=== PATIENT | male | born 1940 | race Caucasian/White ===

== ENCOUNTER 2017-11-25 18:56 | Observation (INO) | payer OTHER ==
[2017-11-25] MEDS ORDERED: AMLODIPINE 5 MG TAB PO ONE (20:23)
[2017-11-25] MEDS ORDERED: ASPIRIN EC 81 MG TAB PO ONE (20:23)
[2017-11-25 20:47] LABS: Absolute Lymphocytes (CBC) 1.4 K/uL (0.7-4.9); Absolute Monocytes 0.7 K/uL (0.1-1.3); Basophils % 0.9 % (0-1.3); Eosinophils % 5.9 % (0-4.4); Hematocrit 44.3 % (39.6-49.0); Lymphocytes % 18.2 % (15.3-44.8); MCH 32.6 pg (27.0-35.0); MCV 95.2 fL (80-100); Monocytes % 9.1 % (3.3-12.3); RBC Red Blood Cell Count 4.66 M/uL (4.33-5.43)
[2017-11-25 21:10] LABS: Albumin 4.2 g/dL (3.4-5.0); Bilirubin Total 0.8 mg/dL (0.2-1.0); CKMB Creatine Kinase MB 4.6 ng/mL (0.3-3.6); Magnesium 2.3 mg/dL (1.8-2.4); Protein, Total 7.6 g/dL (6.4-8.2); Thyroid Stimulating Hormone 1.88 uIU/mL (0.36-3.74)
--- NOTE | 2017-11-25 21:14 | RAD REPORT ---
EXAM DESCRIPTION: Dae Mercer And Carmelo (2 Views)11/25/2017 9:02 pm CLINICAL HISTORY: Cough COMPARISON: None FINDINGS: The lungs appear clear of acute infiltrate. The heart is normal size. A moderate hiatal hernia is seen IMPRESSION: No acute abnormalities displayed
--- NOTE | 2017-11-26 05:40 | HP ---
Date of Admission: 11/25/2017 Chief Complaint: Pain. History Of Present Illness: This is a 77-year-old male patient, who came into office today and repor raymond that 2 months ago he had some numbness in his left arm, that lasted for about half a day or so, a nd he felt like his left hand was cold at that time. He has not had recurrence of similar symptom bu t since that time, he has been having some problem where he describes he has a history of left should er pain off and on for a long-long time, which he has talked about many years with certain activity b ut lately he is having some different type of complaints where he feels like his left arm is weaker t arguello normal from time to time. Today, he worked in the yard, he felt like left arm was feeling tired or weaker than usual after this yard work and he has been feeling some weakness of left upper extremi ty in last few days. Denies any pain in the center of the chest, but has some pain in the left anter ior shoulder region. After the patient was evaluated at the office, [facility] and management of this problem. Denies any fall or injury. No neck pain. Allergies: NO KNOWN ALLERGIES. Medications: Per list at office, he takes amlodipine 5 mg daily, metoprolol 25 mg p.o. at bedtime, a spirin 81 mg daily, Symbicort inhaler 2 puffs 2 times a day. Review of Systems: Cardiovascular: As mentioned above. Musculoskeletal: As mentioned above. Neurology: As mentioned above. All other systems reviewed and negative. Past Medical History: Significant for hypertension, hyperlipidemia, allergic rhinitis, gout, impaire d fasting glucose, diverticulosis. Family History: Significant for heart disease, COPD, diabetes, breast cancer, coronary artery diseas e, brain cancer. Past Surgical History: Hernia repair. Social History: Negative for smoking, alcohol use. Physical Examination: Vital Signs: At office, his height was 67 inches, weight 183 pounds, blood pressure was 160/86, puls e 60, respiratory rate 15, temperature 97.6. General: Awake, alert, oriented, not in distress. HEENT: Head atraumatic, normocephalic. Conjunctivae nonerythematous. Sclerae white. Mouth, no thr ush or edema noted. Ears/Nose, no mass, lesion, discharge noted. Neck: Supple. No JVD, lymph nodes, bruit, thyromegaly noted. Lungs: Bilateral good equal air entry. Clear to auscultation. No rhonchi. No rales. Heart: Normal heart sounds, no murmur or gallop. Abdomen: Soft, bowel sounds normal. No guarding, rigidity, tenderness, mass, hepatosplenomegaly, dis tention, or bruit noted. Extremities: No leg edema. No calf tenderness. Skin: No rash, ulcer, cellulitis. Lymphatics: No lymph node enlargement in neck, supraclavicular, infraclavicular region. Neuro: No focal neurological deficit. Chest: Unremarkable. External Genitalia: Deferred. Rectal: Deferred. Laboratory Data: White count 7.6, hemoglobin 15.2, platelets 232. Sodium 139, potassium 4, chloride 104, bicarb 26, BUN 23, creatinine 1.20, glucose 101. Liver function tests unremarkable. TSH 1.88. Chest x-ray, no acute cardiopulmonary changes. Impression: 1.Atypical chest pain. 2.Cervical spondylosis with radiculopathy. 3.Hypertension. 4.Benign prostatic hypertrophy. 5.Hyperlipidemia. 6.Impaired fasting glucose. 7.Diverticulosis. Plan: Admit the patient to hospital for further evaluation and management of this problem. The shruthi ent is appropriate for observation. We will go ahead and admit him to telemetry. Amlodipine and asp irin dose will be given tonight per order. I will see him tomorrow for followup. We will go ahead a nd get Lexiscan stress test tomorrow and tomorrow we will also place order for MRI of the cervical sp ine. Details and plan of treatment discussed with the patient. Home medications will be continued p er order. I will see him tomorrow for followup and possible discharge to go home tomorrow depending on the test results. KATHLEEN/MANNY Voice ID: [id number]
[2017-11-26] MEDS ORDERED: REGADENOSON 0.4 MG/5 ML SYR IV ONE (08:23)
[2017-11-26] MEDS ORDERED: DOXYLAMINE PO SCH (09:00)
[2017-11-26] MEDS ORDERED: ASPIRIN EC 81 MG TAB PO SCH (09:00)
[2017-11-26] MEDS ORDERED: HOME MED 1 EA UNK (Metoprolol Tartrate [Metoprolol Tartrate] 25 MG) PO SCH (09:00)
[2017-11-26] MEDS ORDERED: AMLODIPINE BESYLATE 5 MG PO SCH (09:00)
[2017-11-26] MEDS ORDERED: PHENYLEPHRINE HCL PO SCH (09:00)
--- NOTE | 2017-11-26 10:25 | TREADPHA ---
DX: CHEST PAIN Date of Study: 11/26/2017 Ht: 5 7 Wt: 183 lb 14.4 oz Consulting Physician: NANCY MEDICATIONS: ASPIRIN HISTORY: 77 YEAR OLD MALE WITH COMPLAINTS OF CHEST PAIN. MEDICAL HISTORY OF HYPERLIPIDEMIA AND HYPERTENSION. PHYSICIAL EXAMINATION: RESTING B.P.: 171/82 RESTING H.R.: 49 RESTING EKG: SINUS BRADYCARDIA PROTOCOL: LEXISCAN EXERCISE TIME: 3:30 B.P. AT PEAK STRESS: 148/75 IMPRESSION: LEXISCAN INJECTED. CARDIOLITE INJECTED PER PROTOCOL. SEE NUCLEAR MEDICINE REPORT. NO SUPRAVENTRICULAR OR VENTRICULAR TACHYCARDIA NOTED. NO PREMATURE VENTRICULAR COMPLEXES. DENIED CHEST PAIN.
--- NOTE | 2017-11-26 12:13 | RAD REPORT ---
EXAM DESCRIPTION: NM - Rest Stress Cardiac Imaging - 11/26/2017 11:58 am CLINICAL HISTORY: CP Chest pain. COMPARISON: Chest Pa And Lat (2 Views) dated 11/25/2017 TECHNIQUE: The patient was administered approximately 10mCi of Tc 99m Sestamibi prior to resting SPE CT imaging of the heart. The patient was then administered approximately 30 mCi of Tc 99m Sestamibi f ollowing exercise or pharmacologic stress. Multiplanar SPECT images were reviewed. FINDINGS: No stress induced ischemic defect is seen to suggest stress induced ischemia. No fixed def ect is seen to suggest hibernating myocardium or scarred myocardium. The end diastolic volume is 80 ml, the end systolic volume is 27 ml, and the ejection fraction is 66 %. IMPRESSION: No stress induced ischemia.
--- NOTE | 2017-11-26 12:26 | RAD REPORT ---
EXAM DESCRIPTION: MRI - C Spine Wo Cont- 11/26/2017 11:55 am CLINICAL HISTORY: cervical radiculopathy COMPARISON: No comparisons FINDINGS: Cervical vertebral bodies are normal in height and alignment. No suspicious marrow edema or marrow replacing process. No fracture or traumatic subluxation. The craniocervical junction is normal. C2-3 level: No significant abnormality. C3-4 level: Moderate disc/ osteophyte complex is noted attenuating the anterior subarachnoid space an d contacting the anterior aspect of the cord. Mild uncovertebral and facet spurring mildly narrowing both exit foramina. C4-5 level: Moderate disc/osteophyte complex is present attenuating the anterior subarachnoid space a nd contacting and deforming the anterior cord. Mild left-sided uncovertebral facet spurring mildly na rrowing the left exit foramen. C5-6 level: Moderate central disc protrusion measuring 4-5 mm is noted, attenuating the anterior suba rachnoid space and contacting and deforming the cord. Mild central canal stenosis is present. Facet a nd uncovertebral spurring is present bilaterally narrowing the exit foramina. C6-7 level: Small posterior disc bulge is seen with bilateral facet and uncovertebral spurring. Mild attenuation of the ventral subarachnoid space is seen. Moderate exit foraminal narrowing bilaterally. C7-T1 level: No significant findings. Cervical cord is normal in size and signal. IMPRESSION: Moderately severe midcervical degenerative change as detailed. Severe canal or foraminal stenosis is not identified at any level.
--- NOTE | 2017-11-27 04:34 | DS ---
Date of Discharge: 11/26/2017 Disposition: Discharged to go home. Physical Examination: HEENT: Unremarkable. Lungs: Clear to auscultation. Heart: Sounds normal. Abdomen: Soft. Bowel sounds normal. No guarding, rigidity, tenderness, or distention. Extremities: No leg edema. Hospital Course: This is a 77-year-old male patient, admitted to the hospital with complaints of bryan n. Please see dictated H and P for more information. After patient was evaluated at office, he was admitted to the hospital. His MT was ruled out by getting serial cardiac enzymes. His blood pressur e was elevated and he was given extra dose of amlodipine yesterday evening. This morning, when I saw him, he had no new complaints. Laboratory Data: Labs and testing done during this hospitalization: Stress test was negative for st ress-induced ischemia. MRI of cervical spine shows moderate degenerative joint disease. No evidence of any significant spinal stenosis. Final Diagnoses: 1.Atypical chest pain. 2.Cervical spondylosis with radiculopathy. 3.Hypertension. 4.Benign prostatic hypertrophy. 5.Hyperlipidemia. 6.Impaired fasting glucose. 7.Diverticulosis. Discharge Medications And Instructions: 1.Continue all prior home medications except change amlodipine 5 mg. patient to take 1 tablet 2 tyson es a day. 2.Follow up at my office in 2 weeks. 3.On an outpatient basis, we will decide to refer him to see orthopedic surgeon for left shoulder pr oblem that he has been having for a long time. Depending on his symptoms at the time of followup vis it, we will decide if we need to consider any medications like gabapentin or not for his cervical spi ne problem. KATHLEEN/MODL Voice ID: [id number] Report ID: [id number]
== END 2017-11-26 14:27 | disposition home or self-care (01) ==
LOC: 4TH 19:52
PROVIDERS: ADMIT Internal Medicine; ATTEND Internal Medicine
DX: R07.89 Other chest pain (principal); M47.892 Other spondylosis, cervical region; I10 Essential (primary) hypertension; N40.0 Benign prostatic hyperplasia without lower urinary tract symptoms; E78.5 Hyperlipidemia, unspecified; R73.01 Impaired fasting glucose; K57.90 Diverticulosis of intestine, part unspecified, without perforation or abscess without bleeding
CPT/HCPCS: 36415; 71046; 72141; 78452; 80053; 82550; 82553; 83735; 84443; 84484; 85025; 93005; 93017; A9500; G0378 ×2; J2785

== ENCOUNTER 2017-12-05 20:02 | Emergency (ER) | payer OTHER ==
[2017-12-05 20:53] LABS: Absolute Lymphocytes (CBC) 2.1 K/uL (0.7-4.9); Absolute Monocytes 0.6 K/uL (0.1-1.3); Absolute Neutrophil 2.7 K/uL (1.8-8.0); Basophils % 1.1 % (0-1.3); Eosinophils % 10.9 % (0-4.4); Hematocrit 43.4 % (39.6-49.0); Lymphocytes % 34.7 % (15.3-44.8); MCH 31.8 pg (27.0-35.0); MCV 95.5 fL (80-100); Monocytes % 9.1 % (3.3-12.3); Protime INR 0.98; RBC Red Blood Cell Count 4.54 M/uL (4.33-5.43)
[2017-12-05 21:13] LABS: Albumin 3.9 g/dL (3.4-5.0); Bilirubin Direct 0.2 mg/dL (0-0.2); Bilirubin Total 0.6 mg/dL (0.2-1.0); CKMB Creatine Kinase MB 3.4 ng/mL (0.3-3.6); Magnesium 2.3 mg/dL (1.8-2.4); Protein, Total 7.2 g/dL (6.4-8.2)
[2017-12-05 22:12] LABS: Urine Blood NEGATIVE (NEG); Urine Glucose NEGATIVE (NEG); Urine Protein NEGATIVE (NEG); Urine Specific Gravity 1.015 (1.005-1.030)
[2017-12-05] MEDS ORDERED: NA CHLORIDE 0.9% 500 ML ONE (22:51)
--- NOTE | 2017-12-05 22:53 | RAD REPORT ---
EXAM DESCRIPTION: Dae Single View12/05/2017 8:49 pm CLINICAL HISTORY: Chest pain COMPARISON: November 23, 2017 FINDINGS: The lungs appear clear of acute infiltrate. The heart is normal size A moderate to large hiatal hernia is present IMPRESSION: No acute abnormalities displayed
--- NOTE | 2017-12-05 22:53 | RAD REPORT ---
EXAM DESCRIPTION: CT - Abdomen Pelvis W Contrast - 12/05/2017 9:34 pm CLINICAL HISTORY: Abdominal pain/generalized abdominal pain COMPARISON: none. TECHNIQUE: Computed axial tomography of the abdomen pelvis was obtained. 100 cc Isovue-300 was admin istered intravenously. Oral contrast was not requested which limits evaluation of bowel. All CT scans are performed using dose optimization technique as appropriate and may include automated exposure control or mA/KV adjustment according to patient size. FINDINGS: A moderate to large hiatal hernia is present The liver, spleen, pancreas, adrenal and kidneys appear unremarkable. Diverticula stem from the colon without evidence of diverticulitis. A small right inguinal hernia is present Spondylosis involves lumbar spine resulting in spinal stenosis IMPRESSION: Moderate to large hiatal hernia
--- NOTE | 2017-12-05 23:14 | ER ---
Nurse's Notes [facility] Name: Enmanuel Le Sr Age: 77 yrs Sex: Male : 1940 Arrival Date: 12/05/2017 Time: 20:03 Bed 17 Private MD: Roberto Resendiz C Diagnosis: Unspecified abdominal pain;Hiatal hernia Presentation: 12/05 20:11 Presenting complaint: Patient states: GENERALIZED ABDOMINAL PAIN AND DIAPHORESIS FOR 20 bp MIN. Transition of care: patient was not received from another setting of care. Onset of symptoms was December 05, 2017 at 20:00. Risk Assessment: Do you want to hurt yourself or someone else? Patient reports no desire to harm self or others. Initial Sepsis Screen: Does the patient meet any 2 criteria? No. Patient's initial sepsis screen is negative. Does the patient have a suspected source of infection? No. Patient's initial sepsis screen is negative. Care prior to arrival: None. 20:11 Method Of Arrival: Ambulatory bp 20:11 Acuity: MYRA 2 bp Triage Assessment: 20:13 General: Appears distressed, uncomfortable, Behavior is cooperative, appropriate for bp age, anxious. Pain: Complains of pain in abdomen. EENT: No deficits noted. Neuro: Level of Consciousness is awake, alert, obeys commands, Oriented to person, place, time, situation, Appropriate for age. Cardiovascular: Rhythm is sinus bradycardia Chest pain is described as "worst pain of my life", quality is clutching, is located in left. Respiratory: Airway is patent Respiratory effort is even, unlabored, Respiratory pattern is regular, symmetrical. GI: Reports lower abdominal pain, upper abdominal pain, nausea, Patient currently denies diarrhea, vomiting. : No signs and/or symptoms were reported regarding the genitourinary system. Derm: No deficits noted. Musculoskeletal: Circulation, motion, and sensation intact. Range of motion: intact in all extremities. Historical: - Allergies: 20:13 No Known Allergies; bp - Home Meds: 20:13 Metoprolol Tartrate Oral [Active]; amlodipine oral [Active]; bp - PMHx: 20:13 Hypertension; bp - Immunization history:: Adult Immunizations up to date. - Social history:: Smoking status: Patient/guardian denies using tobacco. - Ebola Screening: : Patient negative for fever greater than or equal to 101.5 degrees Fahrenheit, and additional compatible Ebola Virus Disease symptoms Patient denies exposure to infectious person Patient denies travel to an Ebola-affected area in the 21 days before illness onset No symptoms or risks identified at this time. Screenin:16 Abuse screen: Denies threats or abuse. Denies injuries from another. Nutritional bp screening: No deficits noted. Tuberculosis screening: No symptoms or risk factors identified. Fall Risk None identified. Assessment: 20:16 General: SEE TRIAGE NOTE. 77YO WM P/W SUDDEN ONSET GEN ABD PAIN WITH LEFT LOWER CP AND bp DIAPHORESIS, OCCURRING AT REST, NOW EASING S/S. 21:00 Reassessment: PT STATES RELIEF OF ACUTE S/S, CT PENDING. bp 21:00 GI: Bowel sounds present X 4 quads. Abd is soft X 4 quads. bp 21:27 Reassessment: PT TO CT WITH CORPORATE DEVELOPMENT ASSOCIATE. bp 21:47 Reassessment: PT RETURNED FROM CT, ALL CURRENT ORDERS COMPLETED, RESULTS PENDING. bp 23:29 Reassessment: PT D/C HOME AMBULATORY, DX WITH HIATAL HERNIA. bp Vital Signs: 20:13 BP 152 / 72; Pulse 57; Resp 20; Temp 98.3; Pulse Ox 94% ; Weight 81.65 kg; Height 5 ft. bp 7 in. (170.18 cm); 20:44 BP 150 / 72; Pulse 56; Resp 13; Pulse Ox 96% on R/A; bp 21:00 BP 155 / 77; Pulse 55; Resp 20; Pulse Ox 96% ; bp 21:56 BP 134 / 97; Pulse 55; Resp 16; Pulse Ox 100% on R/A; ks6 22:40 BP 149 / 72; Pulse 53; Resp 18; Pulse Ox 100% on R/A; tl2 23:28 BP 146 / 76; Pulse 54; Resp 14; Pulse Ox 96% ; bp 20:13 Body Mass Index 28.19 (81.65 kg, 170.18 cm) bp ED Course: 20:03 Patient arrived in ED. es 20:03 Roberto Resendiz MD is Private Physician. es 20:04 Larry Mathias, MARIA INES is Primary Nurse. bp 20:12 Triage completed. bp 20:13 Arm band placed on. bp 20:16 Patient has correct armband on for positive identification. Bed in low position. Call bp light in reach. Side rails up X2. Adult w/ patient. 20:17 Jairo Engel NP is PHCP. pm1 20:17 Bishop Alexis MD is Attending Physician. pm1 20:44 Inserted saline lock: 20 gauge in left antecubital area, using aseptic technique. Blood bp collected. 20:49 XRAY Chest (1 view) In Process Unspecified. EDMS 21:30 CT completed. Patient moved to CT via wheelchair. Patient moved back from CT. cw1 21:34 CT Abd/Pelvis - W/Contrast: IV contrast only In Process Unspecified. EDMS 23:11 Kamilla Marin MD is Referral Physician. pm1 23:29 No provider procedures requiring assistance completed. IV discontinued, intact, bp bleeding controlled, No redness/swelling at site. Pressure dressing applied. Administered Medications: 22:45 Drug: NS 0.9% 500 ml Route: IV; Rate: bolus; Site: right antecubital; bp Outcome: 23:13 Discharge ordered by MD. pm1 23:30 Discharged to home ambulatory, with family. bp 23:30 Condition: stable 23:30 Discharge instructions given to patient, family, Instructed on discharge instructions, follow up and referral plans. Demonstrated understanding of instructions, follow-up care. 23:31 Patient left the ED. bp Signatures: Dispatcher [employer] EDDC Cande Bocanegra Crystal cw1 Jairo Engel NP [employer] PRESS OPERATOR pm1 Carla Thompson RN RN tl2 Larry Mathias RN RN bp Gordy Shanks ks6
--- NOTE | 2017-12-05 23:14 | EDPHYS ---
Physician Documentation [facility] Name: Enmanuel Le Sr Age: 77 yrs Sex: Male : 1940 Arrival Date: 12/05/2017 Time: 20:03 Bed 17 Private MD: Roberto Resendiz C ED Physician Bishop Alexis HPI: 12/05 21:00 This 77 yrs old Male presents to ER via Ambulatory with complaints of pm1 Abdominal Pain, Nausea. 21:00 The patient presents with abdominal pain that is diffuse. Onset: The symptoms/episode pm1 began/occurred just prior to arrival. The symptoms do not radiate. Associated signs and symptoms: Pertinent positives: nausea, Pertinent negatives: chest pain, diarrhea, dysuria, fever, shortness of breath, vomiting. The symptoms are described as sharp. Modifying factors: The symptoms are alleviated by nothing, the symptoms are aggravated by nothing. Severity of pain: in the emergency department the pain has resolved is a 0 / 10. The patient has not experienced similar symptoms in the past. The patient has not recently seen a physician, the patient's primary care provider is Dr. Resendiz. Historical: - Allergies: 20:13 No Known Allergies; bp - Home Meds: 20:13 Metoprolol Tartrate Oral [Active]; amlodipine oral [Active]; bp - PMHx: 20:13 Hypertension; bp - Immunization history:: Adult Immunizations up to date. - Social history:: Smoking status: Patient/guardian denies using tobacco. - Ebola Screening: : Patient negative for fever greater than or equal to 101.5 degrees Fahrenheit, and additional compatible Ebola Virus Disease symptoms Patient denies exposure to infectious person Patient denies travel to an Ebola-affected area in the 21 days before illness onset No symptoms or risks identified at this time. ROS: 21:00 Constitutional: Negative for fever, chills, and weight loss, Eyes: Negative for injury, pm1 pain, redness, and discharge, ENT: Negative for injury, pain, and discharge, Neck: Negative for injury, pain, and swelling, Cardiovascular: Negative for chest pain, palpitations, and edema, Respiratory: Negative for shortness of breath, cough, wheezing, and pleuritic chest pain. 21:00 Back: Negative for injury and pain, : Negative for injury, bleeding, discharge, and swelling, MS/Extremity: Negative for injury and deformity. 21:00 Neuro: Negative for headache, weakness, numbness, tingling, and seizure. 21:00 Abdomen/GI: Positive for abdominal pain, Negative for nausea, vomiting, and diarrhea. 21:00 Skin: Positive for diaphoresis. Exam: 21:00 Constitutional: This is a well developed, well nourished patient who is awake, alert, pm1 and in no acute distress. Head/Face: Normocephalic, atraumatic. Eyes: Pupils equal round and reactive to light, extra-ocular motions intact. Lids and lashes normal. Conjunctiva and sclera are non-icteric and not injected. Cornea within normal limits. Periorbital areas with no swelling, redness, or edema. ENT: Nares patent. No nasal discharge, no septal abnormalities noted. Tympanic membranes are normal and external auditory canals are clear. Oropharynx with no redness, swelling, or masses, exudates, or evidence of obstruction, uvula midline. Mucous membranes moist. Neck: Trachea midline, no thyromegaly or masses palpated, and no cervical lymphadenopathy. Supple, full range of motion without nuchal rigidity, or vertebral point tenderness. No Meningismus. Chest/axilla: Normal chest wall appearance and motion. Nontender with no deformity. No lesions are appreciated. Cardiovascular: Regular rate and rhythm with a normal S1 and S2. No gallops, murmurs, or rubs. Normal PMI, no JVD. No pulse deficits. Respiratory: Lungs have equal breath sounds bilaterally, clear to auscultation and percussion. No rales, rhonchi or wheezes noted. No increased work of breathing, no retractions or nasal flaring. 21:00 Back: No spinal tenderness. No costovertebral tenderness. Full range of motion. Skin: Warm, dry with normal turgor. Normal color with no rashes, no lesions, and no evidence of cellulitis. MS/ Extremity: Pulses equal, no cyanosis. Neurovascular intact. Full, normal range of motion. 21:00 Abdomen/GI: Inspection: abdomen appears normal, Bowel sounds: normal, Palpation: soft, mild abdominal tenderness, in the suprapubic area, mass, is not appreciated, rebound tenderness, is not appreciated. 21:00 Neuro: Orientation: is normal, Motor: is normal, moves all fours. Vital Signs: 20:13 BP 152 / 72; Pulse 57; Resp 20; Temp 98.3; Pulse Ox 94% ; Weight 81.65 kg; Height 5 ft. bp 7 in. (170.18 cm); 20:44 BP 150 / 72; Pulse 56; Resp 13; Pulse Ox 96% on R/A; bp 21:00 BP 155 / 77; Pulse 55; Resp 20; Pulse Ox 96% ; bp 21:56 BP 134 / 97; Pulse 55; Resp 16; Pulse Ox 100% on R/A; ks6 22:40 BP 149 / 72; Pulse 53; Resp 18; Pulse Ox 100% on R/A; tl2 23:28 BP 146 / 76; Pulse 54; Resp 14; Pulse Ox 96% ; bp 20:13 Body Mass Index 28.19 (81.65 kg, 170.18 cm) bp MDM: 20:18 Patient medically screened. pm1 22:00 Physician consultation: Srinath Biggs MD was contacted at 21:55, Dictations are not pm1 processing through electronic records. No acute abnormalities. Patient with moderate hiatal hernia. 23:10 Data reviewed: vital signs. Data interpreted: Pulse oximetry: on room air is 100 %. pm1 Interpretation: normal. 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 23:10 ED course: Patient's without any chest pain or shortness of breath. Troponin negative. pm1 ECG NSR. Patient's stress test from 11/26/2017 reviewed: No stress induced ischemia. Labs wnls. CT positive for moderate to large hiatal hernia. Patient will be discharged to home to follow up with GI for further evaluation. . 12/05 20:18 Order name: Basic Metabolic Panel; Complete Time: 21:24 bp 12/05 20:18 Order name: CBC with Diff; Complete Time: 21:24 bp 12/05 20:18 Order name: Ckmb; Complete Time: 21:24 bp 12/05 20:18 Order name: CPK; Complete Time: 21:24 bp 12/05 20:18 Order name: LFT's; Complete Time: 21:24 bp 12/05 20:18 Order name: Magnesium; Complete Time: 21:24 bp 12/05 20:18 Order name: NT PRO-BNP; Complete Time: 21:24 bp 12/05 20:18 Order name: PT-INR; Complete Time: 21:24 bp 12/05 20:18 Order name: Ptt, Activated; Complete Time: 21:24 bp 12/05 20:18 Order name: Troponin (emerg Dept Use Only); Complete Time: 21:24 bp 12/05 20:18 Order name: XRAY Chest (1 view); Complete Time: 22:56 bp 12/05 20:18 Order name: Lipase; Complete Time: 21:24 bp 12/05 20:27 Order name: CT Abd/Pelvis - W/Contrast: IV contrast only; Complete Time: 22:56 pm1 12/05 21:55 Order name: Urine Dipstick--Ancillary (enter results); Complete Time: 22:17 rg2 12/05 20:18 Order name: EKG; Complete Time: 20:19 bp 12/05 20:18 Order name: Cardiac monitoring; Complete Time: 20:43 bp 12/05 20:18 Order name: EKG - Nurse/Tech; Complete Time: 20:43 bp 12/05 20:18 Order name: IV Saline Lock; Complete Time: 20:43 bp 12/05 20:18 Order name: Labs collected and sent; Complete Time: 20:43 bp 12/05 20:18 Order name: O2 Per Protocol; Complete Time: 20:43 bp 12/05 20:18 Order name: O2 Sat Monitoring; Complete Time: 20:43 bp 12/05 20:18 Order name: Urine Dipstick-Ancillary (obtain specimen); Complete Time: 21:54 bp Administered Medications: 22:45 Drug: NS 0.9% 500 ml Route: IV; Rate: bolus; Site: right antecubital; bp Disposition: 12/06 02:14 Co-signature as Attending Physician, Bishop Alexis MD. pkl Disposition: 12/05/17 23:13 Discharged to Home. Impression: Unspecified abdominal pain, Hiatal hernia. - Condition is Stable. - Discharge Instructions: Abdominal Pain, Adult, Hiatal Hernia. - Medication Reconciliation Form, Thank You Letter form. - Follow up: Emergency Department; When: As needed; Reason: Worsening of condition. Follow up: Kamilla Marin MD; When: 2 - 3 days; Reason: Recheck today's complaints, Continuance of care, Re-evaluation by your physician. - Problem is new. - Symptoms have improved. Signatures: Dispatcher [employer] EDMS Bishop Alexis MD MD pkl Jairo Engel, PROGRAM DIRECTOR/MUSIC DIRECTOR PROGRAM DIRECTOR/MUSIC DIRECTOR pm1 Larry Mathias, RN RN bp Corrections: (The following items were deleted from the chart) 12/05 23:31 23:13 12/05/2017 23:13 Discharged to Home. Impression: Unspecified abdominal pain; bp Hiatal hernia. Condition is Stable. Forms are Medication Reconciliation Form, Thank You Letter, Antibiotic Education, Prescription Opioid Use. Follow up: Emergency Department; When: As needed; Reason: Worsening of condition. Follow up: Kamilla Marin; When: 2 - 3 days; Reason: Recheck today's complaints, Continuance of care, Re-evaluation by your physician. Problem is new. Symptoms have improved. pm1
--- NOTE | 2017-12-07 07:44 | EKG ---
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
== END 2017-12-05 23:31 | disposition home or self-care (01) ==
LOC: ER 20:02
DX: K44.9 Diaphragmatic hernia without obstruction or gangrene (principal); I10 Essential (primary) hypertension
CPT/HCPCS: 36415; 71045; 74177; 80048; 80076; 81003; 82550; 82553; 83690; 83735; 83880; 84484; 85025; 85610; 85730; 93005; 99285; Q9967

== ENCOUNTER 2021-05-01 13:37 | Emergency (ER) | payer OTHER ==
--- OUTSIDE RECORDS SUMMARY | 2021-05-01 13:40 | XMS REPORT | Continuity of Care Document ---
:1940 Author Organization [facility] t Address [address] [place] [address] Care Team Providers Name Role Phone Pcp, Does Not Have A Primary Care Physician Therapy, [facility] Attending Clinician Unavailable Ebrahim REPAIRER GENERAL Attending Clinician EBRAHIM Attending Clinician Unavailable Doctor Unassigned, Name Attending Clinician Unavailable Marlen SPANN T Attending Clinician Unavailable UNKNOWN Attending Clinician Unavailable Payers Payer Name Policy Policy Number Effective Expiration Source Type Date Date MEDICAREMEDICARE [id number] 2003 Univers ity of PART A & 00:00:00 [facility] [id number] 2003 [phone] [id number] [phone] NEW ERA LIFENEW REHOBOTH [id number] 2018 Unive rsity of [id number]/[id number] 00:00:00 [facility] 19-PresentIndemnity Branc h Problems Condition Condition Condition Status Onset Resolution Last Treating Co mments Source Name Details Category Date Date Treatment Clinician Date No known No known Disease Unive rs active active ity of problems problems [facility] Allergies, Adverse Reactions, Alerts Allergy Allergy Status Severity Reaction(s) Onset Inactive Treating Comm ents Source Name Type Date Date Clinician NO KNOWN Drug Active Univers ALLERGIE Class ity of S [facility] Social History Social Habit Start Date Stop Date Quantity Comments Source Exposure to Yes University SARS-CoV-2 [facility] (event) Branch Tobacco use and 2021-01-05 2021-01-05 Never used Universit y of exposure 00:00:00 00:00:00 [facility] Alcohol intake 2021-01-05 2021-01-05 Lifetime University of 00:00:00 00:00:00 non-drinker [facility] (finding) [place] Sex Assigned At [birth year] [facility] y of 00:00:00 00:00:00 [facility] Smoking Status Start Date Stop Date Source Never smoker [facility] Branch Medications Ordered Filled Start Stop Current Ordering Indication Dosage Frequency Signature Comments Components Source Medication Medication Date Date Medication? Clinician (SIG) Name Name doxylamine- Yes 1{tbl} Take 1 [place] phenylephri 8-16 tablet by ity of ne 7.5-10 00:00: mouth 2 [place] mg Tab 00 (two) Medical times Branch daily. doxylamine- Yes 1{tbl} Take 1 [place] phenylephri 8-16 tablet by ity of ne 7.5-10 00:00: mouth 2 [place] mg Tab 00 (two) Medical times Branch daily. doxylamine- Yes 1{tbl} Take 1 [place] phenylephri 8-16 tablet by ity of ne 7.5-10 00:00: mouth 2 [place] mg Tab 00 (two) Medical times Branch daily. doxylamine- Yes 1{tbl} Take 1 [place] phenylephri 8-16 tablet by ity of ne 7.5-10 00:00: mouth 2 [place] mg Tab 00 (two) Medical times Branch daily. amLODIPine Yes TAKE ONE Uni vers 5 mg tablet 7-02 TABLET BY ity of 00:00: MOUTH [place] 00 TWICE A Medical DAY FOR Branch HEART/BLOO D PRESSURE atorvastati Yes TAKE Univer s n 20 mg 7-02 ONE-HALF ity of tablet 00:00: TABLET BY MOUTH AT Medical BEDTIME Branch FOR CHOLESTERO L budesonide- Yes INHALE 2 [place] formoteroL 7-02 PUFFS BY ity o f 80-4.5 00:00: MOUTH [place] mcg/actuati 00 TWICE A Medic al on inhaler DAY FOR Branch BREATHING RINSE YOUR MOUTH OUT AFTER EACH USE amLODIPine Yes TAKE ONE Uni vers 5 mg tablet 7-02 TABLET BY ity of 00:00: MOUTH TWICE A Medical DAY FOR Branch HEART/BLOO D PRESSURE atorvastati Yes TAKE Univer s n 20 mg 7-02 ONE-HALF ity of tablet 00:00: TABLET BY [place] MOUTH AT [facility] BEDTIME [place] FOR CHOLESTERO L budesonide- Yes INHALE 2 [place] formoteroL 7-02 PUFFS BY ity o f 80-4.5 00:00: MOUTH [place] mcg/actuati 00 TWICE A Medic al on inhaler DAY FOR Branch BREATHING RINSE YOUR MOUTH OUT AFTER EACH USE amLODIPine Yes TAKE ONE Uni vers 5 mg tablet 7-02 TABLET BY ity of 00:00: MOUTH TWICE A Medical DAY FOR Branch HEART/BLOO D PRESSURE atorvastati Yes TAKE Univer s n 20 mg 7-02 ONE-HALF ity of tablet 00:00: TABLET BY [place] MOUTH AT [facility] FOR CHOLESTERO L budesonide- Yes INHALE 2 [place] formoteroL 7-02 PUFFS BY ity o f 80-4.5 00:00: MOUTH [place] mcg/actuati 00 TWICE A Medic al on inhaler DAY FOR Branch BREATHING RINSE YOUR MOUTH OUT AFTER EACH USE amLODIPine Yes TAKE ONE Uni vers 5 mg tablet 7-02 TABLET BY ity of 00:00: MOUTH TWICE A Medical DAY FOR Branch HEART/BLOO D PRESSURE atorvastati Yes TAKE Univer s n 20 mg 7-02 ONE-HALF ity of tablet 00:00: TABLET BY [place] [facility]TH [facility] budesonide- Yes INHALE 2 [place] formoteroL 7-02 PUFFS BY ity o f 80-4.5 00:00: MOUTH [place] mcg/actuati 00 TWICE A Medic al on inhaler DAY FOR Branch BREATHING RINSE YOUR MOUTH OUT AFTER EACH USE losartan 50 2020- Yes TAKE ONE [place] mg tablet 6-07 TABLET BY ity o f 00:00: MOUTH 00 TWICE A Medical DAY FOR Branch BLOOD PRESSURE losartan 50 2020- Yes TAKE ONE [place] mg tablet 6-07 TABLET BY ity o f 00:00: MOUTH [place] 00 TWICE A Medical DAY FOR Branch BLOOD PRESSURE losartan 50 2020-0 Yes TAKE ONE [place] mg tablet 6-07 TABLET BY ity o f 00:00: MOUTH [place] 00 TWICE A Medical DAY FOR Branch BLOOD PRESSURE losartan 50 2020-0 Yes TAKE ONE [place] mg tablet 6-07 TABLET BY ity o f 00:00: MOUTH [place] 00 TWICE A Medical DAY FOR Branch BLOOD PRESSURE Vital Signs Vital Name Observation Time Observation Value Comments Source Systolic blood 2021-01-10 23:50:00 136 mm[Hg] Univer sity of [facility] Diastolic blood 2021-01-10 23:50:00 77 mm[Hg] Unive rsity [facility] [place] [facility] Heart rate 2021-01-10 23:50:00 67 /min [facility] Body temperature 2021-01-10 23:50:00 37.11 Megan [facility] Respiratory rate 2021-01-10 23:50:00 20 /min [facility] Oxygen saturation in 2021-01-10 23:50:00 97 /min [facility] blood by [facility] Pulse oximetry [place] Body height 2021-01-10 22:45:[address] [facility] Body weight 2021-01-10 22:45:[address] [facility] BMI 2021-01-10 22:45:00 28.98 kg/m2 [facility] Procedures Procedure Date / Time Performed Performing Clinician [facility] ASSIGNMENT OF BENEFITS 2021-01-10 22:14:19 Doctor Unassigned, No [facility] Encounters Start End Encounter Admission Attending Care Care Encounter Source Date/Time Date/Time Type Type Clinicians Facility Department ID 2021-01-10 2021-01-10 Nurse Therapy, Ang Kameron Zavala [facility] [id number] Univers 17:17:07 18:31:15 Visit [facility] [id number] dorina pham [place] [id number] David as Cesar?Blea [phone] Tn renee carrero [address] [place] [address] Medical Office Building 2021-01-10 2021-01-10 Outpatient [facility] [id number] Univers 17:30:00 17:30:00 [id number] ity [facility] 2021-01-10 2021-01-10 Outpatient R YULIANA, [facility] [id number] Univers 17:30:00 17:30:00 NICOLAS ity [facility] 2021-01-10 2021-01-10 Orders Doctor MARROQUIN [id number] Univers 00:00:00 00:00:00 Only Unassigned, REBECCA [id number] ity of [place] [facility] [id number] David as [phone] [facility] 009 Branch 2021-01-07 2021-01-07 Letter CARA Gee [id number] Univers 00:00:00 00:00:00 (Out) Danya FERNANDEZ [id number] it y of [facility] [id number] David as [phone] [facility] 019 Branch 2021-01-05 2021-01-05 Outpatient R UNKNOWN, [facility] [id number] Univers 19:40:00 19:40:00 ATTENDING ity [facility] Results This patient has no known results.
--- NOTE | 2021-05-01 14:43 | RAD REPORT ---
EXAM DESCRIPTION: RAD - Foot Right 3 View - 05/01/2021 2:25 pm CLINICAL HISTORY: Right foot pain status post injury FINDINGS: No fracture or dislocation is seen. Large posterior calcaneal spur
--- NOTE | 2021-05-01 15:55 | EDPHYS ---
Physician Documentation [facility] Name: Enmanuel Le Sr Age: 81 yrs Sex: Male : 1940 Arrival Date: 05/01/2021 Time: 13:38 Bed Treatment Private MD: Roberto Resendiz C ED Physician Nolberto Peace HPI: 05/01 15:52 This 81 yrs old Male presents to ER via Ambulatory with complaints of Foot Injury. jmm 15:52 The patient presents with an injury, pain. Onset: The symptoms/episode began/occurred jm acutely, just prior to arrival. Modifying factors: The symptoms are alleviated by nothing. the symptoms are aggravated by weight bearing. The patient has not experienced similar symptoms in the past. An 81-year-old male with history of hypertension that presents emerged department with complaints of left foot pain which occurred after a fall off a ladder. Patient denies other injury. Denies hitting his head. Patient noticed swelling to his left foot. Historical: - Allergies: 13:48 No Known Allergies; ss - PMHx: 13:48 Hypertension; ss - Immunization history:: Client reports receiving the 2nd dose of the Covid vaccine. - Social history:: Smoking status: Patient denies any tobacco usage or history of. ROS: 15:52 Constitutional: Negative for fever, chills, and weight loss, Cardiovascular: Negative jmm for chest pain, palpitations, and edema, Respiratory: Negative for shortness of breath, cough, wheezing, and pleuritic chest pain. 15:52 MS/extremity: Positive for pain, swelling. 15:52 All other systems are negative. Exam: 15:52 Constitutional: This is a well developed, well nourished patient who is awake, alert, jmm and in no acute distress. Head/Face: atraumatic. Eyes: EOMI, no conjunctival erythema appreciated ENT: Moist Mucus Membranes Neck: Trachea midline, Supple Chest/axilla: Normal chest wall appearance and motion. Cardiovascular: Regular rate and rhythm. No edema appreciated Respiratory: Normal respirations, no respiratory distress appreciated Abdomen/GI: Non distended, soft Back: Normal ROM 15:52 Musculoskeletal/extremity: Edema noted to the left foot, compartments are soft full dorsalis pulse appreciated, neurovascular intact. 15:52 Skin: Ecchymosis noted to the dorsum of the left foot. 15:52 Neuro: Orientation: is normal, Mentation: is normal, Memory: is normal. 15:52 Psych: Behavior/mood is pleasant, cooperative. Vital Signs: 13:45 Pulse 77; Resp 16; Temp 97.7(TE); Pulse Ox 100% ; Weight 86.18 kg; Height 5 ft. 7 in. ss (170.18 cm); Pain 5/10; 13:49 BP 140 / 72; ss 13:45 Body Mass Index 29.76 (86.18 kg, 170.18 cm) ss MDM: 14:17 Patient medically screened. [facility] 15:54 Data reviewed: vital signs, nurses notes. Counseling: I had a detailed discussion with [facility] the patient and/or guardian regarding: the historical points, exam findings, and any diagnostic results supporting the discharge/admit diagnosis, radiology results, the need for outpatient follow up, to return to the emergency department if symptoms worsen or persist or if there are any questions or concerns that arise at home. 05/01 13:49 Order name: XRAY Foot RIGHT 3 View; Complete Time: 14:48 ss 05/01 15:10 Order name: Ortho shoe; Complete Time: 15:45 [facility] Administered Medications: No medications were administered Disposition Summary: 05/01/21 15:54 Discharge Ordered Location: Home [facility] Condition: Stable [facility] Diagnosis - Other sprain of left foot [facility] Followup: [facility] - With: Larry Mann DPM - When: 2 - 3 days - Reason: Recheck today's complaints, Continuance of care, Re-evaluation by your physician Discharge Instructions: - Discharge Summary Sheet [facility] - Foot Sprain [facility] Forms: - Medication Reconciliation Form [facility] - Thank You Letter [facility] - Antibiotic Education [facility] - Prescription Opioid Use [facility] Addendum: 05/04/2021 07:16 Co-signature as Attending Physician, Nolberto Peace MD I agree with the assessment and r n plan of care. Attestation: The patient's history, exam findings, diagnostics, and a summary of any interventions or procedures was reviewed in detail with Chi MORALES. Signatures: Dispatcher [employer] EDChi Gomez PA PA jmm Nieto, Roman, MD MD rn [facility]una gilbert RN RN
--- NOTE | 2021-05-01 15:55 | ER ---
Nurse's Notes [facility] Name: Enmanuel Le Sr Age: 81 yrs Sex: Male : 1940 Arrival Date: 05/01/2021 Time: 13:38 Bed Treatment Private MD: Roberto Resendiz C Diagnosis: Other sprain of left foot Presentation: 05/01 13:45 Chief complaint: Patient states: R foot pain that began after falling 5 feet off of a ss ladder and landing right onto foot. Coronavirus screen: Client denies travel out of the [place] in the last 14 days. Ebola Screen: Patient denies exposure to infectious person. Patient denies travel to an Ebola-affected area in the 21 days before illness onset. Initial Sepsis Screen: Does the patient meet any 2 criteria? No. Patient's initial sepsis screen is negative. Does the patient have a suspected source of infection? No. Patient's initial sepsis screen is negative. Risk Assessment: Do you want to hurt yourself or someone else? Patient reports no desire to harm self or others. Onset of symptoms was May 01, 2021. 13:45 Method Of Arrival: Ambulatory ss 13:45 Acuity: MYRA 4 ss Historical: - Allergies: 13:48 No Known Allergies; ss - PMHx: 13:48 Hypertension; ss - Immunization history:: Client reports receiving the 2nd dose of the Covid vaccine. - Social history:: Smoking status: Patient denies any tobacco usage or history of. Vital Signs: 13:45 Pulse 77; Resp 16; Temp 97.7(TE); Pulse Ox 100% ; Weight 86.18 kg; Height 5 ft. 7 in. ss (170.18 cm); Pain 5/10; 13:49 BP 140 / 72; ss 13:45 Body Mass Index 29.76 (86.18 kg, 170.18 cm) ED Course: 13:38 Patient arrived in ED. as 13:38 Roberto Resendiz MD is Private Physician. as 13:48 Triage completed. ss 13:48 Arm band placed on left wrist. ss 14:00 Chi Mckinney PA is PHCP. m 14:00 Nolberto Peace MD is Attending Physician. jmm 14:25 XRAY Foot RIGHT 3 View In Process Unspecified. EDMS 15:27 Ravindra, Jasmine, RN is Primary Nurse. [facility] 15:54 Larry Mann DPM is Referral Physician. divya Administered Medications: No medications were administered Outcome: 15:54 Discharge ordered by . divya 15:59 Patient left the ED. [facility] Signatures: Dispatcher [employer] EDMS Chi Mckinney PA PA jmm Martinez, Amelia as Smirch, Shelby, RN RN Jasmine Waite, RN RN [facility]
[2021-05-01 16:12] VITALS: TEMP 97.7; O2SAT 100
[2021-05-01 16:13] VITALS: BP 140/72
== END 2021-05-01 15:59 | disposition home or self-care (01) ==
LOC: ER 13:37
DX: S93.602A Unspecified sprain of left foot, initial encounter (principal); I10 Essential (primary) hypertension; W11.XXXA Fall on and from ladder, initial encounter
CPT/HCPCS: 99282

== ENCOUNTER 2021-11-23 07:43 | Emergency (ER) | payer OTHER ==
[2021-11-23 08:30] LABS: Absolute Lymphocytes (CBC) 1.7 K/uL (0.7-4.9); Hematocrit 40.4 % (39.6-49.0); MCV 92.3 fL (80-100); MPV 7.2 fL (7.6-11.3); RBC Red Blood Cell Count 4.38 M/uL (4.33-5.43)
[2021-11-23] MEDS ORDERED: MAGNES/ALUMIN/SIMET 30ML UCUP ONE (08:54)
[2021-11-23] MEDS ORDERED: LIDOCAINE VISCOUS 2% SOLN 15 ML UDC ONE (08:54)
[2021-11-23 08:57] LABS: Blood Morphology Comment NOT SEEN (NOT SEEN); Platelet Estimate ADEQ
--- NOTE | 2021-11-23 10:15 | RAD REPORT ---
EXAM DESCRIPTION: Dae Single View11/23/2021 8:50 am CLINICAL HISTORY: Chest pain COMPARISON: 2018 FINDINGS: The lungs appear clear of acute infiltrate. The heart is normal size IMPRESSION: No acute abnormalities displayed
--- NOTE | 2021-11-23 10:15 | RAD REPORT ---
EXAM DESCRIPTION: CT - Abdomen Pelvis W Contrast - 11/23/2021 9:51 am CLINICAL HISTORY: Abdominal pain COMPARISON: 2018 TECHNIQUE: Computed axial tomography of the abdomen pelvis was obtained. 100 cc Isovue-300 was admin istered intravenously. Oral contrast was not requested which limits evaluation of bowel and appendix All CT scans are performed using dose optimization technique as appropriate and may include automated exposure control or mA/KV adjustment according to patient size. FINDINGS: Moderate to large hiatal hernia The liver, spleen, pancreas, adrenal and kidneys appear unremarkable. There is no evidence of diverticulitis. Small umbilical and right inguinal hernias containing fat. Prostate gland is mildly enlarged. Spondylosis involves lumbar spine resulting in spinal stenosis Moderate amount of stool within the colon IMPRESSION: Moderate to large hiatal hernia
[2021-11-23 10:52] LABS: Albumin 3.7 g/dL (3.4-5.0); Bilirubin Direct 0.2 mg/dL (0-0.2); Bilirubin Total 0.9 mg/dL (0.2-1.0)
--- NOTE | 2021-11-23 11:04 | ER ---
Nurse's Notes [facility] Name: Enmanuel Le Age: 81 yrs Sex: Male : 1940 Arrival Date: 11/23/2021 Time: 07:46 Bed 18 Private MD: Roberto Resendiz C Diagnosis: Hiatal Hernia;Paresthesia of skin Presentation: 11/23 07:59 Chief complaint: Patient states: I have been having some GI discomfort that has jg9 progressed to left clavicle discomfort for the past couple days, hx of hiatal hernia, symptoms worse with eating but left hand numbness has been intermittent as well. Coronavirus screen: Vaccine status: Patient reports receiving the 2nd dose of the covid vaccine. Ebola Screen: Patient negative for fever greater than or equal to 101.5 degrees Fahrenheit, and additional compatible Ebola Virus Disease symptoms Patient denies exposure to infectious person. Patient denies travel to an Ebola-affected area in the 21 days before illness onset. Initial Sepsis Screen: Does the patient meet any 2 criteria? No. Patient's initial sepsis screen is negative. Does the patient have a suspected source of infection? No. Patient's initial sepsis screen is negative. Risk Assessment: Do you want to hurt yourself or someone else? Patient reports no desire to harm self or others. Onset of symptoms is unknown. 07:59 Method Of Arrival: Ambulatory 9 07:59 Acuity: MYRA 3 jg9 Triage Assessment: 08:02 General: Appears in no apparent distress. Behavior is calm, cooperative. Pain: Denies jg9 pain. Cardiovascular: Reports epigastric discomfort, left clavicle discomfort. Historical: - Allergies: 08:01 No Known Allergies; jg9 - Home Meds: 08:01 amlodipine oral [Active]; Metoprolol Tartrate Oral [Active]; jg9 - PMHx: 08:01 Hypertension; jg9 - Immunization history:: Adult Immunizations Client reports receiving the 2nd dose of the Covid vaccine, Pneumococcal vaccine is up to date, Flu vaccine is not up to date. - Social history:: Smoking status: Patient denies any tobacco usage or history of. - Family history:: not pertinent. - Hospitalizations: : No recent hospitalization is reported. Screenin:02 Abuse screen: Denies threats or abuse. Denies injuries from another. Nutritional jg9 screening: No deficits noted. Tuberculosis screening: No symptoms or risk factors identified. Fall Risk None identified. Assessment: 08:03 Pain: Pain radiates to left supraclavicular area and left clavicle Pain began. jg9 08:51 Reassessment: Patient appears in no apparent distress at this time. Patient and/or tw2 family updated on plan of care and expected duration. Pain level reassessed. Patient is alert, oriented x 3, equal unlabored respirations, skin warm/dry/pink. 09:40 Reassessment: pt ambulating steady to restroom at this time, pt states need to tw2 "urinate" and does not want to use a urinal. 09:51 Reassessment: pt is in CT at this time via w/c with aMrtin Martinez. tw2 10:09 Reassessment: Patient appears in no apparent distress at this time. Patient and/or tw2 family updated on plan of care and expected duration. Pain level reassessed. Patient is alert, oriented x 3, equal unlabored respirations, skin warm/dry/pink. pt requesting to go sit in spouses exam room #12 in ER at this time. pt ambulates steadily on his feet. 11:10 Reassessment: Patient appears in no apparent distress at this time. Patient and/or tw2 family updated on plan of care and expected duration. Pain level reassessed. Patient is alert, oriented x 3, equal unlabored respirations, skin warm/dry/pink. pending results consultation with provider at this time. 11:24 Reassessment: provider at bedside at this time. tw2 Vital Signs: 07:59 BP 148 / 77; Pulse 74; Resp 20 S; Temp 98.1(TE); Pulse Ox 99% on R/A; Weight 81.65 kg; jg9 Height 5 ft. 7 in. (170.18 cm) (R); Pain 0/10; 08:51 BP 116 / 52; Pulse 62; Resp 17; Pulse Ox 97% on R/A; tw2 10:09 BP 147 / 71; Pulse 84; Resp 17; Pulse Ox 97% on R/A; Pain 0/10; tw2 11:23 BP 122 / 67; Pulse 62; Resp 17; Pulse Ox 97% on R/A; tw2 07:59 Body Mass Index 28.19 (81.65 kg, 170.18 cm) jg9 ED Course: 07:46 Patient arrived in ED. as 07:46 Roberto Resendiz MD is Private Physician. as 07:47 Nolberto Peace MD is Attending Physician. rn 08:01 Triage completed. jg9 08:02 Arm band placed on right wrist. jg9 08:02 Patient has correct armband on for positive identification. Bed in low position. Call jg9 light in reach. Side rails up X 1. 08:02 Client placed on continuous cardiac and pulse oximetry monitoring. NIBP monitoring jg9 applied. 08:03 Patient maintains SpO2 saturation greater than 95% on room air. jg9 08:20 SARS-COV-2 RT PCR (Document "Date of Onset" if Symptomatic) Sent. [facility] 08:20 EKG done, by ED staff, reviewed by Nolberto Peace MD. Inserted saline lock: 20 gauge in 7 right forearm, using aseptic technique. Blood collected. 08:45 Jo Ann Parekh RN is Primary Nurse. tw2 08:51 XRAY Chest (1 view) In Process Unspecified. EDMS 09:52 Abdomen In Process Unspecified. EDMS 11:03 Roberto Resendiz MD is Referral Physician. rn 11:24 No provider procedures requiring assistance completed. tw2 11:28 IV discontinued, intact, bleeding controlled, No redness/swelling at site. Pressure tw2 dressing applied. Administered Medications: 08:51 Drug: GI Cocktail without - (Maalox Suspension 30 ml, Lidocaine Liquid 2 % 15 tw2 ml) Route: PO; 11:23 Follow up: Response: No adverse reaction tw2 Medication: 11:24 VIS not applicable for this client. tw2 Outcome: 11:04 Discharge ordered by . rn 11:28 Discharged to home ambulatory, with significant other. tw2 11:28 Condition: stable 11:28 Discharge instructions given to patient, significant other, Instructed on discharge instructions, follow up and referral plans. Demonstrated understanding of instructions, follow-up care. 11:28 Patient left the ED. tw2 Signatures: Dispatcher [employer] EDMS Radha Farley Roman, MD MD rn Wise, Tara, RN RN tw2 Ernestine Decker 7 Modesta Hathaway RN RN jg9 Corrections: (The following items were deleted from the chart) 11:24 11:23 Reassessment: Patient appears in no apparent distress at this time. Patient tw2 and/or family updated on plan of care and expected duration. Pain level reassessed. Patient is alert, oriented x 3, equal unlabored respirations, skin warm/dry/pink. pending results consultation with provider at this time. tw2
--- NOTE | 2021-11-23 11:05 | EDPHYS ---
Physician Documentation [facility] Name: Enmanuel Le Age: 81 yrs Sex: Male : 1940 Arrival Date: 11/23/2021 Time: 07:46 Bed 18 Private MD: Roberto Resendiz C ED Physician Nolberto Peace HPI: 11/23 08:57 This 81 yrs old Male presents to ER via Ambulatory with complaints of abdominal pain, rn Chest Pain, Arm Pain, Numbness. 08:57 The patient presents with abdominal pain in the epigastric area. Onset: The rn symptoms/episode began/occurred 3 day(s) ago. The symptoms radiate to the left arm. Associated signs and symptoms: Pertinent positives: nausea, Pertinent negatives: anorexia, blood in stools, fever, palpitations, shortness of breath. The symptoms are described as achy. Modifying factors: The symptoms are alleviated by nothing, the symptoms are aggravated by nothing. Severity of pain: At its worst the pain was mild in the emergency department the pain has improved. The patient has not experienced similar symptoms in the past. The patient has not recently seen a physician. Pt reports abd pain, epigastric, began a few days ago, worse with eating, but then felt left hand tingling and pain radiated up to left chest so made him worried. Was not going to come in for this, but brought in today for evaluation and thought he would get checked out while he was here.. Historical: - Allergies: 08:01 No Known Allergies; jg9 - Home Meds: 08:01 amlodipine oral [Active]; Metoprolol Tartrate Oral [Active]; jg9 - PMHx: 08:01 Hypertension; jg9 - Immunization history:: Adult Immunizations Client reports receiving the 2nd dose of the Covid vaccine, Pneumococcal vaccine is up to date, Flu vaccine is not up to date. - Social history:: Smoking status: Patient denies any tobacco usage or history of. - Family history:: not pertinent. - Hospitalizations: : No recent hospitalization is reported. ROS: 08:57 Constitutional: Negative for fever, chills, and weight loss, Eyes: Negative for injury, rn pain, redness, and discharge, Neck: Negative for injury, pain, and swelling, Cardiovascular: Negative for palpitations, and edema, Respiratory: Negative for shortness of breath, cough, wheezing, and pleuritic chest pain, Abdomen/GI: Negative for vomiting, diarrhea, and constipation, Back: Negative for injury and pain, MS/Extremity: Negative for injury and deformity, Skin: Negative for injury, rash, and discoloration, Neuro: Negative for headache, weakness, and seizure. Exam: 08:57 Constitutional: This is a well developed, well nourished patient who is awake, alert, rn and in no acute distress. Head/Face: Normocephalic, atraumatic. Cardiovascular: Regular rate and rhythm. No pulse deficits. Respiratory: No increased work of breathing, no retractions or nasal flaring. Abdomen/GI: Soft, non-tender Skin: Warm, dry MS/ Extremity: Pulses equal, no cyanosis. Neuro: Awake and alert, GCS 15, oriented to person, place, time, and situation. Cranial nerves II-XII grossly intact. Motor strength 5/5 in all extremities. Sensory grossly intact. Cerebellar exam normal. Vital Signs: 07:59 BP 148 / 77; Pulse 74; Resp 20 S; Temp 98.1(TE); Pulse Ox 99% on R/A; Weight 81.65 kg; jg9 Height 5 ft. 7 in. (170.18 cm) (R); Pain 0/10; 08:51 BP 116 / 52; Pulse 62; Resp 17; Pulse Ox 97% on R/A; tw2 10:09 BP 147 / 71; Pulse 84; Resp 17; Pulse Ox 97% on R/A; Pain 0/10; tw2 11:23 BP 122 / 67; Pulse 62; Resp 17; Pulse Ox 97% on R/A; tw2 07:59 Body Mass Index 28.19 (81.65 kg, 170.18 cm) jg9 MDM: 07:47 Patient medically screened. rn 10:28 ED course: field technician called lab for verbal creatinine, was told verbally that it was rn normal and patient scanned with IV contrast. Later found out that verbal labs belonged to different patient. Awaiting actual creatinine. . 11:02 Differential diagnosis: coronary artery disease, diverticulitis, gastritis, rn gastroesophageal reflux disease, pancreatitis, Peptic Ulcer Disease, Perf. Duodenal Ulcer, GERD, hiatal hernia, neuropathy. Data reviewed: vital signs, nurses notes, lab test result(s), EKG, radiologic studies, CT scan, plain films, and as a result, I will discharge patient. Counseling: I had a detailed discussion with the patient and/or guardian regarding: the historical points, exam findings, and any diagnostic results supporting the discharge/admit diagnosis, lab results, radiology results, the need for outpatient follow up, to return to the emergency department if symptoms worsen or persist or if there are any questions or concerns that arise at home. 11:02 Special discussion: Based on the patient's Hx, exam, and Dx evaluation, there is no rn indication for emergent surgery or inpatient Tx. It is understood by the patient/guardian that if the Sx's persist or worsen they need to return immediately for re-evaluation. I discussed with the patient/guardian in detail that at this point there is no indication for admission to the hospital. It is understood, however, that if the symptoms persist or worsen the patient needs to return immediately for re-evaluation. ED course: CT without acute findings, trop neg, ECG normal, stable vitals, feels better. Now states that slept on cough last night and thinks that is what cause arm problems/shoulder pain. Will dc home with pcp f/u. . 11/23 07:54 Order name: Basic Metabolic Panel; Complete Time: 11: rn 11/23 07:54 Order name: CBC with Diff; Complete Time: 09:33 rn 11/23 07:54 Order name: LFT's; Complete Time: 11: rn 11/23 07:54 Order name: NT PRO-BNP; Complete Time: 11: rn 11/23 07:54 Order name: Troponin HS; Complete Time: 11:11/23 07:54 Order name: Lipase; Complete Time: 11: rn 11/23 07:54 Order name: XRAY Chest (1 view); Complete Time: 10:27 rn 11/23 07:54 Order name: EKG; Complete Time: 07:54 rn 11/23 07:54 Order name: Cardiac monitoring; Complete Time: 09:00 rn 11/23 07:54 Order name: SARS-COV-2 RT PCR (Document "Date of Onset" if Symptomatic); Complete Time: rn 10:27 11/23 08:26 Order name: CT Abd/Pelvis - IV Contrast Only rn 11/23 08:30 Order name: Abdomen ; Complete Time: 10:27 EDNH 11/23 08:58 Order name: Manual Differential; Complete Time: 09:33 EDMS 11/23 07:54 Order name: EKG - Nurse/Tech; Complete Time: 08:20 rn 11/23 07:54 Order name: IV Saline Lock; Complete Time: 08:20 rn 11/23 07:54 Order name: Labs collected and sent; Complete Time: 08:20 rn 11/23 07:54 Order name: O2 Per Protocol; Complete Time: 08:20 rn 11/23 07:54 Order name: O2 Sat Monitoring; Complete Time: 08:20 rn Administered Medications: 08:51 Drug: GI Cocktail without - (Maalox Suspension 30 ml, Lidocaine Liquid 2 % 15 tw2 ml) Route: PO; 11:23 Follow up: Response: No adverse reaction tw2 Disposition Summary: 11/23/21 11:04 Discharge Ordered Location: Home rn Problem: new rn Symptoms: have improved rn Condition: Stable rn Diagnosis - Hiatal Hernia rn - Paresthesia of skin rn Followup: rn - With: Roberto Resendiz MD - When: As needed - Reason: Recheck today's complaints, Re-evaluation by your physician Discharge Instructions: - Discharge Summary Sheet rn - Hiatal Hernia rn - Paresthesia rn Forms: - Medication Reconciliation Form rn - Thank You Letter rn - Antibiotic rn unit manager - Prescription Opioid Use rn Signatures: Dispatcher [employer] Nolberto Fry MD MD rn Wise, Tara, RN RN tw2 Modesta Hathaway RN RN jg9
[2021-11-23 11:39] VITALS: TEMP 98.1
[2021-11-23 11:41] VITALS: O2SAT 97
[2021-11-23 11:45] VITALS: BP 122/67
--- NOTE | 2021-11-25 13:51 | EKG ---
Test Date: 2021-11-23 Test Time: 07:59:51 Back Office Medical Assistant: MYRIAM MEASUREMENT RESULTS: Intervals: Rate: 63 ID: [id number] QRSD: 86 QT: 390 QTc: 399 Haines: P: 58 ID: [id number] QRS: 49 T: 25 INTERPRETIVE STATEMENTS: Normal sinus rhythm with sinus arrhythmia Normal ECG Compared to ECG 01/19/2020 12:29:13 No significant changes Electronically Signed On 11-25-21 13:47:38 CDT by William Saldivar
== END 2021-11-23 11:28 | disposition home or self-care (01) ==
LOC: ER 07:43
DX: K44.9 Diaphragmatic hernia without obstruction or gangrene (principal); R20.2 Paresthesia of skin; I10 Essential (primary) hypertension; Z20.822 Contact with and (suspected) exposure to COVID-19
CPT/HCPCS: 93005; 85025; 80048; 36415; 80076; 84484; 83690; 83880; 74177; 71045; U0003; Q9967; 99284

== ENCOUNTER 2023-03-18 19:37 | Emergency (ER) | payer OTHER ==
--- OUTSIDE RECORDS SUMMARY | 2023-03-18 19:40 | XMS REPORT | Continuity of Care Document ---
:1940 Author Organization [facility] t Address [address] [place] [address] [place] [id number] Care Team Providers Name Role Phone Pcp, Patient Does Not Have A Primary Care Physician [id number] RADIOLOGY Attending Clinician Unavailable Radiology Attending Clinician Unavailable Doctor Unassigned, [place] Attending Clinician Unavailable RACHNA HART Attending Clinician Unavailable Ed Giles S Attending Clinician ED MIN Attending Clinician Unavailable JOSE HOWE Attending Clinician Unavailable Danya Gee RN Attending Clinician Unavailable Only, Ang Db Test Attending Clinician Unavailable Ade Kraft MD Attending Clinician ADE KRAFT Attending Clinician Unavailable Therapy, Ang Uc Covid Attending Clinician Unavailable Nicolas Garcia Attending Clinician NICOLAS HINES Attending Clinician Unavailable UNKNOWN, ATTENDING Attending Clinician Unavailable ALPHONSE GRULLON Admitting Clinician Unavailable RACHNA HART Admitting Clinician Unavailable Payers Payer Name Policy Type Policy Number Effective Date Expiration Date Jaylyn saez MEDICARE PART A [id number] 2003 \T\ B 00:00:00 [employer] [place] [employer] [id number] 2018 00:00:00 Problems Condition Condition Condition Status Onset Resolution Last Treating Co mments Source Name Details Category Date Date Treatment Clinician Date No known No known Disease Unive rs active active ity of problems problems [facility] Allergies, Adverse Reactions, Alerts Allergy Allergy Status Severity Reaction(s) Onset Inactive Treating Comm ents Source Name Type Date Date Clinician NO KNOWN Drug Active Univers ALLERGIE Class ity of S [facility] Family History Family Member Diagnosis Comments Start Date Stop Date Source Natural brother Stomach cancer Meth[facility] Natural mother Breast cancer [facility] Natural mother Other [facility] Social History Social Habit Start Date Stop Date Quantity Comments Source [facility] orientation [facility] Alcohol intake 2021-08-17 2021-08-17 Ex-drinker [facility] 00:00:00 00:00:00 (finding) Hospital History of Social 2021-08-17 2021-08-[address] function 00:00:00 00:00:00 Hospital Tobacco Comment 2021-08-13 2021-08-[address] 00:00:00 00:00:00 Hospital Tobacco use and 2021-08-13 2021-08-13 Smokeless [facility] exposure 00:00:00 00:00:00 tobacco non-user Hospital Exposure to 2021-05-21 2021-06-20 Not sure University of SARS-CoV-2 (event) 00:00:00 09:40:00 [facility] Sex Assigned At [birth year] [facility] 00:00:00 00:00:00 Hospital Smoking Status Start Date Stop Date Source Never smoked tobacco [facility] Medications Ordered Filled Start Stop Current Ordering Indication Dosage Frequency Signature Comments Components Source Medication Medication Date Date Medication? Clinician (SIG) Name Name barium 2021-05- No [id number] 680g 680 g, Univ ers sulfate 06-24 Oral, ity of (LIQUID E-Z 15:30: 16:12 [place] 60 % 00 :00 dose, On Medi [place] (w/v) oral Wed Branch suspension 04/23/22 at 680 g 0930, Routine barium 2021-05- No [id number] 710mL 710 mL, Un [place] sulfate 06-02 Oral, ity of (LIQUID E-Z 17:00: 16:46 [place] 60 % 00 :00 dose, On Medi [place] (w/v) oral Wed Branch suspension 04/02/22 710 mL at 1100, Routine doxylamine- Yes Take by Met hodi phenylephri 4-[address] ne 7.5-10 03:06: HALF Hospita mg tablet 40 TABLET IN l AM AND HALF TABLET IN PM atorvastati Yes 10mg QD Take 10 mg Methodi n (LIPITOR) 4-[address] 10 mg 03:06: daily. Hospita tablet 40 l amLODIPine Yes 5mg QD Take 5 mg [facility] (NORVASC) 5 4-[address] mg tablet 03:06: daily. Hospit a 40 2TIMES l DAILY losartan Yes 50mg QD Take 50 mg Met hodi (COZAAR) 50 4-[address] MG tablet 03:06: daily. Hospit a 40 TWICE A l DAY multivitami Yes 1{tbl} QD Take 1 [facility] n tablet 4-[address] 03:06: mouth Hospita 40 daily. l UNABLE TO Yes OMEGA PLUS Me thodi FIND [address] 03:06: WITH Hospita 40 VITAMIN l D12, DHA, COQ10 TWICE/DAY ibuprofen Yes 200mg Q6H Take 200 Met [facility] (ADVIL) 200 4-[address] MG tablet 03:06: mouth Hospita 40 every 6 l (six) hours as needed for mild pain. pantoprazol Yes 40mg QD Take 40 mg Method[facility] e 3-[address] (PROTONIX) 00:00: every Hospit a 40 MG EC 00 morning. l tablet doxylamine- Yes 1{tbl} Take 1 Un [place] phenylephri 8-16 tablet by ity of [place] 7.5-10 00:00: mouth 2 [place] mg Tab 00 (two) Medical times Branch daily. doxylamine- 0 Yes 1{tbl} Take 1 Un [place] phenylephri 8-16 tablet by ity of ne 7.5-10 00:00: mouth 2 [place] mg Tab 00 (two) Medical times Branch daily. doxylamine- Yes 1{tbl} Take 1 Un [place] phenylephri 8-16 tablet by ity of ne 7.5-10 00:00: mouth 2 [place] mg Tab 00 (two) Medical times Branch daily. doxylamine- 2020-0 Yes 1{tbl} Take 1 Un [place] phenylephri 8-16 tablet by ity of ne 7.5-10 00:00: mouth 2 [place] mg Tab 00 (two) Medical times Branch daily. doxylamine- 2020-0 Yes 1{tbl} Take 1 Un [place] phenylephri [...] ONE-HALF ity of tablet 00:00: TABLET BY [place] MOUTH AT [facility] BEDTIME [place] FOR CHOLESTERO L budesonide- Yes INHALE 2 [...] ONE-HALF ity of tablet 00:00: TABLET BY [place] MOUTH AT [facility] BEDTIME [place] FOR CHOLESTERO L budesonide- Yes INHALE 2 [...] ONE-HALF ity of tablet 00:00: TABLET BY [place] MOUTH AT [facility] FOR CHOLESTERO L budesonide- Yes INHALE 2 Un [place] formoteroL 7-02 PUFFS BY ity o f 80-4.5 00:00: MOUTH [place] mcg/actuati 00 TWICE A Medic al on inhaler DAY FOR Branch BREATHING RINSE YOUR MOUTH OUT AFTER EACH USE budesonide- Yes INHALE 2 Me th[facility] formoteroL 7-[address] (SYMBICORT) 00:00: MOUTH Hospi ta 80-4.5 00 TWICE A l mcg/actuati DAY FOR on inhaler BREATHING RINSE YOUR MOUTH OUT AFTER EACH USE amLODIPine Yes TAKE ONE Uni vers 5 mg tablet 7-02 TABLET BY ity of 00:00: MOUTH TWICE A Medical DAY FOR Branch HEART/BLOO D PRESSURE atorvastati Yes TAKE Univer s n 20 mg 7-02 ONE-HALF ity of tablet 00:00: TABLET BY [place] MOUTH AT [facility] FOR CHOLESTERO L budesonide- Yes INHALE [...] of tablet 00:00: TABLET BY MOUTH AT [facility] FOR CHOLESTERO L budesonide- Yes INHALE 2 Un [place] formoteroL 7-02 PUFFS BY ity o f 80-4.5 00:00: MOUTH [place] mcg/actuati 00 TWICE A Medic al on inhaler DAY FOR Branch BREATHING RINSE YOUR MOUTH OUT AFTER EACH USE losartan 50 Yes TAKE ONE Un [place] mg tablet 6-07 TABLET BY ity o f 00:00: MOUTH [place] 00 TWICE A Medical DAY FOR Branch BLOOD PRESSURE losartan 50 2020- Yes TAKE ONE Un [place] mg tablet 6-07 TABLET BY ity o f 00:00: MOUTH [place] 00 TWICE A Medical DAY FOR Branch BLOOD PRESSURE losartan 50 Yes TAKE ONE Un [place] mg tablet 6-07 TABLET BY ity o f 00:00: MOUTH [place] 00 TWICE A Medical DAY FOR Branch BLOOD PRESSURE losartan 50 Yes TAKE ONE Un [place] mg tablet 6-07 TABLET BY ity o f 00:00: MOUTH [place] 00 TWICE A Medical DAY FOR Branch BLOOD PRESSURE losartan 50 Yes TAKE ONE Un [place] mg tablet 6-07 TABLET BY ity o f 00:00: MOUTH [place] 00 TWICE A Medical DAY FOR Branch BLOOD PRESSURE Vital Signs Vital Name Observation Time Observation Value Comments Source Systolic blood 2021-06-20 17:02:00 160 mm[Hg] [facility] pressure [facility] Diastolic blood 2021-06-20 17:02:00 78 mm[Hg] [facility] Heart rate 2021-06-20 17:02:00 64 /min [facility] Body height 2021-06-20 16:51:00 170.2 cm [facility] Body weight 2021-06-20 16:51:00 89.404 kg [facility] BMI 2021-06-20 16:51:00 30.87 kg/m2 [facility] Oxygen saturation 2021-06-20 16:51:00 96 /min [facility] in Arterial blood Medical anch by Pulse oximetry Procedures Procedure Date / Time Performed Performing Clinician [facility] e SCOTTY UPPER GI SERIES 2022-04-23 16:08:42 Requisition, Paper [facility] [place] BARIUM SWALLOW 2022-04-02 16:44:28 Alphonse Grullon [facility] CONSENT/REFUSAL FOR 2022-04-02 15:11:07 Doctor Unassigned, No Un [facility] DIAGNOSIS AND Name Medical Branch TREATMENT Plan of Care Planned Activity Planned Date Details Comments Source Future Scheduled 2023-03-15 SHINGLES VACCINES (1 Met [facility] Test 07:04:49 of 2) [code = SHINGLES VACCINES (1 of 2)] Future Scheduled 2023-03-15 65+ PNEUMOCOCCAL [facility] Test 07:04:49 VACCINE (1 - PCV) [code = 65+ PNEUMOCOCCAL VACCINE (1 - PCV)] Future Scheduled 2023-03-15 COVID-19 VACCINE (4 - Me [facility] Test 07:04:49 season) [code = COVID-19 VACCINE (4 - season)] Future Scheduled 2023-03-15 INFLUENZA VACCINE (#1) [facility] [place] [facility] Test 07:04:49 [code = INFLUENZA VACCINE (#1)] Encounters Start End Encounter Admission Attending Care Care Encounter Source Date/Time Date/Time Type Type Clinicians Facility Department ID 2022-04-23 2022-04-23 Outpatient R RADIOLOGY [facility] [id number] Univers 08:00:32 23:59:00 ity of [facility] 2022-04-23 2022-04-[address] [facility] [address] [facility] [id number] Univers 08:00:00 23:59:00 Encounter [place] [id number] ity [id number] [id number] [facility] jerome 807 Branch 2022-04-23 2022-04-23 Outpatient R RADIOLOGY [facility] [id number] Univers 00:00:00 00:00:00 ity of [facility] 2022-04-02 2022-04-02 Outpatient R RADIOLOGY [facility] [id number] Univers 09:13:10 23:59:00 ity of [facility] 2022-04-02 2022-04-[address] [facility] [id number] Univers 09:13:10 23:59:00 Encounter [place] [id number] [id number] [id number] [facility] jerome 807 Branch 2022-04-02 2022-04-02 Orders Doctor MARROQUIN [id number] Univers 00:00:00 00:00:00 Only Unassigned, REBECCA [id number] [place] [facility] [id number] David [id number] [facility] jerome 009 Branch 2021-08-16 2021-08-16 Outpatient [facility] [id number] [place] 00:00:00 00:00:00 NASRULL[address] 2021-08-14 2021-08-14 Outpatient HAILEYFORMERLY [facility] [id number] [place] 00:00:00 00:00:00 NAS[address] 2021-06-20 2021-06-20 [facility] [id number] Univers 11:00:00 11:30:00 Visit [facility] [id number] it y of [place] [id number] David as CESAR?BLEA [phone] Wi renee SKAGGS [address] [place] MEDICAL OFFICE [facility] 2021-06-20 2021-06-20 Outpatient Mai MIN [facility] [id number] Univers 11:00:00 11:00:00 [facility] 2021-06-20 2021-06-20 Outpatient Mai MIN [facility] [id number] Univers 11:00:00 11:00:00 [facility] 2021-06-20 2021-06-20 Outpatient Mai HOWE [facility] [id number] Univers 09:45:00 09:45:00 [facility] 2021-05-21 2021-05-21 Letter CARA Gee [id number] Univers 00:00:00 00:00:00 (Out) Danya FERNANDEZ [id number] [facility] [id number] David as [phone] [address] 2021-05-20 2021-05-20 Laboratory Only, Ang Db Test [facility] 1.2.8 [id number] Univers 10:15:00 10:30:00 Only Ade Kraft [facility] [id number] [facility] [id number] David as CESAR?BLEA [id number] Wi renee SKAGGS [address] [facility] OFFICE [facility] 2021-05-20 2021-05-20 Outpatient R ALEXIS [facility] [id number] Univers 10:15:00 10:15:00 ADE [facility] 2021-01-10 2021-01-10 Nurse Therapy, Lizandro Melo Covid [facility] 1.2. [id number] Univers 17:17:07 18:31:15 Visit Nicolas Hines [facility] [id number] ity of [place] [id number] David as Cesar?Blea [phone] [address] Medical Office Building 2021-01-10 2021-01-10 Outpatient R SHEREEKenny [facility] [id number] Univers 17:30:00 17:30:00 NICOLAS [facility] 2021-01-10 2021-01-10 Orders Doctor CARA [id number] Univers 00:00:00 00:00:00 Only Unassigned, REBECCA [id number] ity of [place] [facility] [id number] David as [phone] [address] 2021-01-07 2021-01-07 Patient Doctor CARA [id number] Univers 00:00:00 00:00:00 Secure Msg Unassigned, REBECCA [id number] [place] [facility] [id number] David as [phone] [address] 2021-01-07 2021-01-07 Letter CARA Gee [id number] Univers 00:00:00 00:00:00 (Out) Danya FERNANDEZ [id number] it y of HOSPITAL [id number] David as [phone] [address] 2021-01-05 2021-01-05 Outpatient R UNKNOWN, [facility] [id number] Univers 19:40:00 19:40:00 ATTENDING [facility] Results Test Description Test Time Test Comments Results Result Comments Source SARS-CoV-2 (COVID-19) RNA [Presence] in Respiratory sp ecimen by 2021-08-14 20:44:40 FLIP with probe detection Test Item Value Reference Range Interpretation Comme nts SARS-CoV-2 (COVID-19) RNA [Presence] in Respiratory specimen by Not detected FLIP with probe detection (test code = 80815-2) Whether patient is employed in a healthcare setting (test code = Un known 80517-9) Whether the patient has symptoms related to condition of interest U nknown (test code = 28515-4) Whether the patient was hospitalized for condition of interest Unkn own (test code = 10039-5) Whether the patient was admitted to intensive care unit (ICU) for U nknown condition of interest (test code = 80588-1) Whether patient resides in a congregate care setting (test code = U nknown 13113-6) status (test code = 10550-2) Unknown Date and time of symptom onset (test code = 71846-0) Unknown [facility]
[2023-03-18] MEDS ORDERED: NA CHLORIDE 0.9% 1,000 ML ONE (20:36)
[2023-03-18] MEDS ORDERED: ASPIRIN 81 MG CHEWABLE TABLET ONE (20:36)
[2023-03-18 20:46] LABS: Protime INR 1.05
[2023-03-18] MEDS ORDERED: ONDANSETRON 4 MG/2 ML VIAL ONE (20:46)
[2023-03-18] MEDS ORDERED: MORPHINE 2 MG/ML SYR ONE (20:46)
[2023-03-18] MEDS ORDERED: PANTOPRAZOLE 40 MG INJ ONE (20:46)
[2023-03-18 21:07] LABS: Bilirubin Direct 0.3 mg/dL (0-0.2); Bilirubin Indirect, Calculated 0.7 mg/dL (0.2-0.8); Magnesium 2.3 mg/dL (1.6-2.4); Potassium 3.9 mEq/L (3.5-5.1); Protein, Total 7.6 g/dL (6.4-8.2); Troponin High Sensitivity 6.4 pg/mL (<58.9)
[2023-03-18 21:53] LABS: Absolute Lymphocytes (CBC) 1.5 K/uL (0.7-4.9); Hematocrit 40.9 % (39.6-49.0); Lymphocytes % 30.7 % (15.3-44.8); MCV 93.1 fL (80-100); Platelets 203 thou/uL (152-406)
--- NOTE | 2023-03-18 21:57 | RAD REPORT ---
EXAM DESCRIPTION: [place] Single View03/18/2023 8:52 pm CLINICAL HISTORY: CHEST PAIN COMPARISON: Chest Single View dated 11/23/2021; Chest Single View dated 12/05/2017; Chest Pa And Lat (2 Views) dated 11/25/2017 TECHNIQUE: Portable AP view of the chest. FINDINGS: The lungs are clear. No pneumothorax or effusion. The cardiomediastinal contours are unre markable. IMPRESSION: No acute cardiopulmonary process.
[2023-03-18 22:07] LABS: Specific Gravity 1.014 (1.005-1.030); Urine Bilirubin NEGATIVE (Negative); Urine Blood Negative (Negative); Urine Clarity Clear (Clear); Urine Color Colorless (Yellow); Urine Glucose NEGATIVE (Negative); Urine Protein NEGATIVE (Negative); Urine Urobilinogen Normal (Normal)
--- NOTE | 2023-03-18 22:21 | RAD REPORT ---
EXAM DESCRIPTION: CT - Chest For Pe Angio - 03/18/2023 9:26 pm CLINICAL HISTORY: CHEST PAIN COMPARISON: No comparisons TECHNIQUE: Thin axial CT images of the chest were obtained following administration of 85 mL Isovue 370 IV contrast. Multiplanar reconstructions, and maximum intensity projection reconstructions were g enerated and reviewed. Exam utilizes a protocol for optimal evaluation of pulmonary arterial tree. All CT scans are performed using dose optimization technique as appropriate and may include automated exposure control or mA/KV adjustment according to patient size. FINDINGS: Pulmonary arteries are normal. No emboli or other suspicious finding. No acute or signific ant aorta findings. No mass or infiltrate in the lung parenchyma. Small calcified granulomas bilaterally. No pleural thic kening or pleural effusion. No pneumothorax. No abnormal mediastinal or hilar masses or lymphadenopathy seen. Large hiatal hernia containing most of the stomach. No chest wall mass or abnormal axilliary lymphadenopathy. IMPRESSION: No evidence of acute central pulmonary emboli. No other acute pulmonary process. Large hiatal hernia.
--- NOTE | 2023-03-18 22:57 | ER ---
Nurse's Notes [facility] Name: Enmanuel Le Age: 83 yrs Sex: Male : 1940 Arrival Date: 03/18/2023 Time: 19:37 Bed 26 Private MD: Diagnosis: Chest pain, unspecified;Congenital hiatus hernia-MODERATE / LARGE Presentation: 03/18 20:00 Chief complaint: Patient states: I have been feeling chest pain since this noon. ha1 20:12 Coronavirus screen: Vaccine status: Patient reports receiving the 2nd dose of the covid ha1 vaccine. MODERNA. 20:12 Method Of Arrival: Wheelchair ha1 20:17 Ebola Screen: No symptoms or risks identified at this time. Initial Sepsis Screen: Does ph the patient meet any 2 criteria? No. Patient's initial sepsis screen is negative. Does the patient have a suspected source of infection? No. Patient's initial sepsis screen is negative. Risk Assessment: Do you want to hurt yourself or someone else? Patient reports no desire to harm self or others. Onset of symptoms was March 18, 2023. 20:17 Acuity: MYRA 3 ph Triage Assessment: 20:17 General: Appears in no apparent distress. Behavior is calm, cooperative, appropriate ph for age. Pain: Complains of pain in chest. Cardiovascular: Rhythm is sinus rhythm. Historical: - Allergies: 20:17 No Known Allergies; ph - Home Meds: 20:17 amlodipine oral [Active]; Metoprolol Tartrate Oral [Active]; ph - PMHx: 20:17 Hypertension; ph - Immunization history:: Adult Immunizations up to date. - Social history:: Smoking status: Patient denies any tobacco usage or history of. Screenin:18 [facility] ED Fall Risk Assessment (Adult) History of falling in the last 3 months, ph including since admission No falls in past 3 months (0 pts). Abuse screen: Denies threats or abuse. Denies injuries from another. Nutritional screening: No deficits noted. Tuberculosis screening: No symptoms or risk factors identified. Assessment: 20:17 General: SEE TRIAGE NOTE. bp 21:55 Reassessment: Patient appears in no apparent distress at this time. Patient is alert, bp oriented x 3, equal unlabored respirations, skin warm/dry/pink. 22:45 Reassessment: Patient appears in no apparent distress at this time. Patient is alert, bp oriented x 3, equal unlabored respirations, skin warm/dry/pink. Patient states symptoms have improved. Vital Signs: 20:17 BP 135 / 71; Pulse 66; Resp 23; Temp 98; Pulse Ox 99% ; ph 21:55 BP 148 / 57; Pulse 63; Resp 15; Pulse Ox 98% ; bp 22:44 BP 139 / 64; Pulse 65; Resp 17; Pulse Ox 97% ; bp ED Course: 19:41 Patient arrived in ED. ag3 19:56 Dianelys Lindsay, RN is Primary Nurse. ph 20:10 Hill Powers MD is Attending Physician. sujata 20:17 Triage completed. ph 20:17 Arm band placed on. ph 20:18 Patient has correct armband on for positive identification. Bed in low position. Call ph light in reach. Side rails up X2. Adult w/ patient. Client placed on continuous cardiac and pulse oximetry monitoring. NIBP monitoring applied. 20:18 Patient maintains SpO2 saturation greater than 95% on room air. ph 20:30 Inserted saline lock: 20 gauge in right antecubital area, using aseptic technique. ls5 Blood collected. 20:54 XRAY Chest (1 view) In Process Unspecified. EDMS 21:28 CT Chest For PE Angio In Process Unspecified. EDMS 22:18 Troponin High Sensitivity Sent. bp 22:57 Zoran Resendiz MD is Referral Physician. sujata 22:57 William Saldivar MD is Referral Physician. sujata 22:57 Kamilla Marin MD is Referral Physician. sujata 23:04 No provider procedures requiring assistance completed. IV discontinued, intact, bp bleeding controlled, No redness/swelling at site. Pressure dressing applied. Administered Medications: 20:29 Drug: Aspirin PO Chewable Tablet 324 mg PO once; 81 mg tablets x 4 Route: PO; bp 20:29 Drug: NS 0.9% IV 1000 ml IV at 125 ml/hr continuous Route: IV; Rate: 125 ml/hr; Site: bp right antecubital; 20:41 Drug: Pantoprazole IVP 40 mg IVP once Route: IVP; Site: right antecubital; bp 20:41 Drug: morphine IVP or IV 2 mg IVP once over 4 mins Route: IVP; Infused Over: 4 mins; bp Site: right antecubital; 20:41 Drug: Ondansetron IVP 4 mg IVP once; over 2 minutes Route: IVP; Site: right antecubital;bp Outcome: 22:57 Discharge ordered by . sujata 23:04 Discharged to home ambulatory, with family, bp 23:04 Condition: stable 23:04 Discharge instructions given to patient, Instructed on discharge instructions, follow up and referral plans. medication usage, Demonstrated understanding of instructions, follow-up care, medications, Prescriptions given X 1, 23:04 Patient left the ED. bp Signatures: Dispatcher [employer] EDMS Hill Powers MD MD cha Hall, Patricia, RN RN Larry Mathias RN RN Kalpana Mai Heidy, RN RN ha Rogelio Buchanan ls5
--- NOTE | 2023-03-18 22:57 | EDPHYS ---
Physician Documentation [facility] Name: Enmanuel Le Age: 83 yrs Sex: Male : 1940 Arrival Date: 03/18/2023 Time: 19:37 Bed 26 Private MD: ED Physician Hill Powers HPI: 03/18 20:23 This 83 yrs old Male presents to ER via Wheelchair with complaints of Chest sujata Pain. 20:23 The patient or guardian reports chest pain that is located primarily in the substernal sujata area, anterior chest wall, left. Onset: today. The pain does not radiate. Associated signs and symptoms: Pertinent positives: nausea. The chest pain is described as a pressure. Duration: The patient or guardian reports a single episode, that is still ongoing, but improving. Modifying factors: The symptoms are alleviated by nothing. the symptoms are aggravated by nothing. Severity of pain: At its worst the pain was moderate in the emergency department the pain has improved mildly. The patient has experienced similar episodes in the past, a few times. Historical: - Allergies: 20:17 No Known Allergies; ph - Home Meds: 20:17 amlodipine oral [Active]; Metoprolol Tartrate Oral [Active]; ph - PMHx: 20:17 Hypertension; ph - Immunization history:: Adult Immunizations up to date. - Social history:: Smoking status: Patient denies any tobacco usage or history of. ROS: 20:33 Constitutional: Negative for fever, chills, and weight loss, Eyes: Negative for injury, sujata pain, redness, and discharge, ENT: Negative for injury, pain, and discharge, Neck: Negative for injury, pain, and swelling, Respiratory: Negative for shortness of breath, cough, wheezing, and pleuritic chest pain, Abdomen/GI: Negative for abdominal pain, nausea, vomiting, diarrhea, and constipation, Back: Negative for injury and pain, : Negative for injury, bleeding, discharge, and swelling, MS/Extremity: Negative for injury and deformity, Skin: Negative for injury, rash, and discoloration, Neuro: Negative for headache, weakness, numbness, tingling, and seizure, Psych: Negative for depression, anxiety, suicide ideation, homicidal ideation, and hallucinations, Allergy/Immunology: Negative for hives, rash, and allergies, Endocrine: Negative for neck swelling, polydipsia, polyuria, polyphagia, and marked weight changes, Hematologic/Lymphatic: Negative for swollen nodes, abnormal bleeding, and unusual bruising, 20:33 Cardiovascular: Positive for chest pain, of the left clavicle, anterior aspect of left upper chest, left lateral anterior chest, left lateral posterior chest and left breast, Exam: 20:33 Constitutional: This is a well developed, well nourished patient who is awake, alert, sujata and in no acute distress. Head/Face: Normocephalic, atraumatic. Eyes: Pupils equal round and reactive to light, extra-ocular motions intact. Lids and lashes normal. Conjunctiva and sclera are non-icteric and not injected. Cornea within normal limits. Periorbital areas with no swelling, redness, or edema. ENT: Nares patent. No nasal discharge, no septal abnormalities noted. Tympanic membranes are normal and external auditory canals are clear. Oropharynx with no redness, swelling, or masses, exudates, or evidence of obstruction, uvula midline. Mucous membranes moist. Neck: Trachea midline, no thyromegaly or masses palpated, and no cervical lymphadenopathy. Supple, full range of motion without nuchal rigidity, or vertebral point tenderness. No Meningismus. Chest/axilla: Normal chest wall appearance and motion. Nontender with no deformity. No lesions are appreciated. Cardiovascular: Regular rate and rhythm with a normal S1 and S2. No gallops, murmurs, or rubs. Normal PMI, no JVD. No pulse deficits. Respiratory: Lungs have equal breath sounds bilaterally, clear to auscultation and percussion. No rales, rhonchi or wheezes noted. No increased work of breathing, no retractions or nasal flaring. Abdomen/GI: Soft, non-tender, with normal bowel sounds. No distension or tympany. No guarding or rebound. No evidence of tenderness throughout. Back: No spinal tenderness. No costovertebral tenderness. Full range of motion. Male : Normal genitalia with no discharge or lesions. Skin: Warm, dry with normal turgor. Normal color with no rashes, no lesions, and no evidence of cellulitis. MS/ Extremity: Pulses equal, no cyanosis. Neurovascular intact. Full, normal range of motion. Neuro: Awake and alert, GCS 15, oriented to person, place, time, and situation. Cranial nerves II-XII grossly intact. Motor strength 5/5 in all extremities. Sensory grossly intact. Cerebellar exam normal. Normal gait. Psych: Awake, alert, with orientation to person, place and time. Behavior, mood, and affect are within normal limits. 20:33 ECG was reviewed by the Attending Physician. 22:20 ECG was reviewed by the Attending Physician. sujata Vital Signs: 20:17 BP 135 / 71; Pulse 66; Resp 23; Temp 98; Pulse Ox 99% ; ph 21:55 BP 148 / 57; Pulse 63; Resp 15; Pulse Ox 98% ; bp 22:44 BP 139 / 64; Pulse 65; Resp 17; Pulse Ox 97% ; bp MDM: 20:10 Patient medically screened. sujata 20:34 Antibiotic administration: Not indicated. Differential diagnosis: Anemia Anxiety sujata Reaction Bronchitis CHF exacerbation, Chronic Obstructive Pulmonary Disease abnormal EKG, acute myocardial infarction, acute pericarditis, chest wall pain, hiatal hernia, pancreatitis, peptic ulcer disease, pericarditis, pleurisy, pneumonia, pneumothorax, pulmonary embolus, stable angina, unstable angina, Myocardial Infarction pneumonia, pulmonary edema, Pulmonary Embolism reactive airway disease, Unstable Angina. HEART Score: History: Slightly Suspicious (0), ECG: Normal (0), Age: > or = 65 years (2), Risk Factors: 1 or 2 risk factors (1), [Hypertension] [+ Family HX] Troponin: < or = 1 x Normal Limit (0). The patient was given aspirin in the Emergency Department. Immunization status: Pneumococcal vaccine: Influenza vaccine: within last 5 years. Data reviewed: vital signs, nurses notes, lab test result(s), EKG, radiologic studies, plain films. Consideration of Admission/Observation Escalation of care including admission/observation considered. I considered the following discharge prescriptions or medication management in the emergency department Medications were administered in the Emergency Department. See MAR. Independent interpretation of the following test(s) in the Emergency Department EKG: See my EKG interpretation above. Test considered but Not performed: Ultrasound no echo 2d. 03/18 20:11 Order name: Basic Metabolic Panel; Complete Time: 21:08 [facility] 03/18 20:11 Order name: CBC with Diff; Complete Time: 21:59 [facility] 03/18 20:11 Order name: LFT's; Complete Time: 21:08 [facility] 03/18 20:11 Order name: Magnesium; Complete Time: 21:08 [facility] 03/18 20:11 Order name: NT PRO-BNP; Complete Time: 21:08 [facility] 03/18 20:11 Order name: PT-INR; Complete Time: 21:08 [facility] 03/18 20:11 Order name: Troponin HS; Complete Time: 21:08 [facility] 03/18 20:11 Order name: Lipase; Complete Time: 21:08 [facility] 03/18 20:11 Order name: Urinalysis w/ reflexes; Complete Time: 22:40 [facility] 03/18 20:20 Order name: Lactate w/ 2H reflex if indic.; Complete Time: 21:59 [facility] 03/18 22:00 Order name: Troponin High Sensitivity; Complete Time: 22:57 [facility] 03/18 20:11 Order name: XRAY Chest (1 view); Complete Time: 21:59 [facility] 03/18 20:21 Order name: CT Chest For PE Angio; Complete Time: 22:40 [facility] 03/18 20:11 Order name: EKG; Complete Time: 20:12 [facility] 03/18 22:00 Order name: EKG; Complete Time: 22:00 [facility] 03/18 20:11 Order name: Cardiac monitoring; Complete Time: 20:20 [facility] 03/18 20:11 Order name: EKG - Nurse/Tech; Complete Time: 20:20 [facility] 03/18 20:11 Order name: IV Saline Lock; Complete Time: 20:29 [facility] 03/18 20:11 Order name: Labs collected and sent; Complete Time: 20:29 [facility] 03/18 20:11 Order name: O2 Per Protocol; Complete Time: 20:20 [facility] 03/18 20:11 Order name: O2 Sat Monitoring; Complete Time: 20:20 [facility] 03/18 22:00 Order name: EKG - Nurse/Tech; Complete Time: 22:18 [facility] EC:33 Rate is 64 beats/min. Rhythm is regular. QRS Kevin is Normal. FL interval is normal. QRS sujata interval is normal. QT interval is normal. No Q waves. T waves are Normal. No ST changes noted. Clinical impression: NSR w/ Non-specific ST/T Changes and No evidence of ischemia. Interpreted by me. Reviewed by me. 22:20 Rate is 61 beats/min. Rhythm is regular. QRS Kevin is Normal. FL interval is normal. QRS sujata interval is normal. QT interval is normal. No Q waves. T waves are Normal. No ST changes noted. Clinical impression: Normal ECG and No evidence of ischemia. Interpreted by me. Reviewed by me. Administered Medications: 20:29 Drug: Aspirin PO Chewable Tablet 324 mg PO once; 81 mg tablets x 4 Route: PO; bp 20:29 Drug: NS 0.9% IV 1000 ml IV at 125 ml/hr continuous Route: IV; Rate: 125 ml/hr; Site: bp right antecubital; 20:41 Drug: Pantoprazole IVP 40 mg IVP once Route: IVP; Site: right antecubital; bp 20:41 Drug: morphine IVP or IV 2 mg IVP once over 4 mins Route: IVP; Infused Over: 4 mins; bp Site: right antecubital; 20:41 Drug: Ondansetron IVP 4 mg IVP once; over 2 minutes Route: IVP; Site: right antecubital;bp Disposition Summary: 03/18/23 22:57 Discharge Ordered Notes: Location: Home sujata Problem: new sujata Symptoms: have improved sujata Condition: Stable sujata Diagnosis - Chest pain, unspecified sujata - 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 Followup: sujata - With: Zoran Resendiz MD - When: Tomorrow - Reason: Recheck today's complaints, Continuance of care, Re-evaluation by your physician Followup: sujata - With: William Saldivar MD - When: 2 - 3 days - Reason: Recheck today's complaints, Re-evaluation by your physician Followup: sujata - With: Kamilla Marin MD - When: 2 - 3 days - Reason: Recheck today's complaints, Re-evaluation by your physician Discharge Instructions: - Discharge Summary Sheet sujata - Nonspecific Chest Pain, Adult sujata - Hiatal Hernia sujata - Nonspecific Chest Pain, Adult, [id number] sujata - Aspirin and Your Heart [facility] Forms: - Medication Reconciliation Form [facility] - Thank You Letter sujata - Antibiotic Education sujata - Prescription Opioid Use sujata - Patient Portal Instructions [facility] - Leadership Thank You Letter [facility] Prescriptions: - Protonix 40 mg Oral Tablet - take 1 tablet ORAL route once daily; 30 tablet; Refills: 0, Product Selection sujata Permitted Signatures: Dispatcher [employer] Hill Hope MD MD cha Hall, Patricia, RN RN ph Stew, Larry, RN RN bp
[2023-03-18 23:26] VITALS: TEMP 98
[2023-03-18 23:28] VITALS: BP 139/64; O2SAT 97
--- NOTE | 2023-03-19 09:46 | EKG ---
Test Date: 2023-03-18 Test Time: 22:10:38 Copy Camera Operator: BP MEASUREMENT RESULTS: Intervals: Rate: 61 VA: 174 QRSD: 80 QT: 416 QTc: 418 [place]: P: 72 VA: 174 QRS: 56 T: 56 INTERPRETIVE STATEMENTS: Normal sinus rhythm Normal ECG Compared to ECG 03/18/2023 19:57:47 No significant changes Electronically Signed On 03-19-23 09:45:09 CDT by William Saldivar
--- NOTE | 2023-03-19 09:46 | EKG ---
Test Date: 2023-03-18 Test Time: 19:57:47 Rapid Extractor Operator: RUTH MEASUREMENT RESULTS: Intervals: Rate: 64 GA: 166 QRSD: 80 QT: 406 QTc: 418 [place]: P: 58 GA: 166 QRS: 46 T: 57 INTERPRETIVE STATEMENTS: Normal sinus rhythm Normal ECG Compared to ECG 11/23/2021 07:59:51 Sinus arrhythmia no longer present Electronically Signed On 03-19-23 09:45:20 CDT by William Saldivar
== END 2023-03-18 23:04 | disposition home or self-care (01) ==
LOC: ER 19:37
DX: R07.89 Other chest pain (principal); Q40.1 Congenital hiatus hernia; I10 Essential (primary) hypertension
CPT/HCPCS: 93005 ×2; 85025; 80048; 36415; 83735; 85610; 80076; 83605; 81003; 84484 ×2; 83690; 83880; 71275; 71045; 96375; 96374; 99285; Q9967; C9113; J2270; J2405; J7030